=== PATIENT | male | born 1965 | race African-American/Black ===

== ENCOUNTER → 2023-03-15 | Outpatient (CLI) | payer OTHER, SELFPAY ==
[2023-03-15 10:40] LABS: Absolute Lymphocyte Count 2.52 X10^3/uL (0.83-4.51); Absolute Neutrophil Count 3.1 X10^3/uL (2.0-7.7); Basophil# 0.03 X10^3/uL; Basophil% 0.5 % (0-1); Eosinophil# 0.13 X10^3/uL; Hematocrit 45.9 % (40-54); Hemoglobin 14.7 g/dL (13.0-16.5); Lymphocyte # 2.52 X10^3/ul (0.83-4.51); Mean Corpuscular Hgb 30.6 pg (27.0-32.0); Mean Corpuscular Volume 95.4 fL (80-94); Mean Platelet Vol. 9.7 fl (6.2-12.0); Monocyte% 12.1 % (0-10); NRBC Flagged by Analyzer 0 % (0-5); Neutrophil # 3.13 X10^3/uL (2.7-7.7); Neutrophil % 47.1 % (47-70); Platelet Count 264 K/mm3 (150-450); RBC Distribution Width CV 13.8 % (11.6-14.6); RBC Distribution Width SD 48.9 fl (35.1-43.9); Red Blood Count 4.81 M/mm3 (4.6-6.2); White Blood Count 6.6 K/mm3 (4.4-11.0)
[2023-03-15 11:20] LABS: ALB/GLOB Ratio 0.8 RATIO (0.9-2.4); AST(SGOT) 19 U/L (15-37); Alanine Aminotransfer ALT/SGPT 21 U/L (16-61); Albumin, Serum 3.6 g/dL (3.2-5.0); Alkaline Phosphatase 134 U/L (45-117); Anion Gap 7 (5-15); BUN 15 mg/dL (7-18); BUN/Creat Ratio 11.7 RATIO (10-20); Calcium,Total 9.4 mg/dL (8.5-10.1); Chloride 109 mmol/L (98-107); Cholesterol 201 mg/dL (200); Creatinine, Serum 1.28 mg/dL (0.70-1.30); EST Glomerular Filtration Rate 62 mL/min (>60); Est Glom Filt Rate - Afr Amer 75 mL/min (>60); Globulin 4.3 g/dL (2.2-4.2); Glucose 96 mg/dL (74-106); High Density Lipoprotein 50 mg/dL; Potassium 3.9 mmol/L (3.5-5.1); Protein, Total 7.9 g/dL (6.4-8.2); Sodium Level 143 mmol/L (136-145); Triglycerides 159 mg/dL; Very Low Density Lipoprotein 32 mg/dL (5-40)
[2023-03-15 12:02] LABS: Syphilis Antibodies Non-reactive
[2023-03-16 10:07] LABS: Absolute CD4 Helper 925 /uL (359-1519); Basophils (Absolute) 0 x10E3/uL (0.0-0.2); Eosinophils 2 % (Not Estab.); Eosinophils (Absolute) 0.1 x10E3/uL (0.0-0.4); Hematocrit 44.9 % (37.5-51.0); Hemoglobin 15.2 g/dL (13.0-17.7); Immature Granulocytes 0 % (Not Estab.); Immature Granulocytes Absolute 0 x10E3/uL (0.0-0.1); Lymphs 38 % (Not Estab.); Lymphs (Absolute) 2.5 x10E3/uL (0.7-3.1); MCHC 33.9 g/dL (31.5-35.7); MCV 92 fL (79-97); Monocytes 11 % (Not Estab.); Monocytes (Absolute) 0.7 x10E3/uL (0.1-0.9); Neutrophils 49 % (Not Estab.); Neutrophils (Absolute) 3.1 x10E3/uL (1.4-7.0); Platelets 262 x10E3/uL (150-450); RDW 14.3 % (11.6-15.4); WBC Count 6.5 x10E3/uL (3.4-10.8)
[2023-03-18 09:07] LABS: HIV-1 RNA by PCR, Quant. 40 copies/mL (.); LOG10 HIV-1 RNA 1.602 (.)
== END | disposition home or self-care (01) ==
LOC: LAB 09:42
PROVIDERS: Visit Provider Internal Medicine Infectious Disease
DX: B20 Human immunodeficiency virus [HIV] disease (principal)
CPT/HCPCS: 36415; 80053; 80061; 85025; 86361; 86780; 87536

== ENCOUNTER → 2023-07-02 | Outpatient (CLI) | payer OTHER, SELFPAY ==
[2023-07-02 11:12] LABS: ALB/GLOB Ratio 0.8 RATIO (0.9-2.4); AST(SGOT) 16 U/L (15-37); Alanine Aminotransfer ALT/SGPT 23 U/L (16-61); Albumin, Serum 3.4 g/dL (3.2-5.0); Alkaline Phosphatase 129 U/L (45-117); Anion Gap 2 (5-15); BUN 17 mg/dL (7-18); BUN/Creat Ratio 15.6 RATIO (10-20); Calcium,Total 8.6 mg/dL (8.5-10.1); Chloride 110 mmol/L (98-107); Cholesterol 201 mg/dL (200); Creatinine, Serum 1.09 mg/dL (0.70-1.30); EST Glomerular Filtration Rate 75 mL/min (>60); Est Glom Filt Rate - Afr Amer 90 mL/min (>60); Glucose 96 mg/dL (74-106); High Density Lipoprotein 48 mg/dL; Potassium 3.8 mmol/L (3.5-5.1); Protein, Total 7.4 g/dL (6.4-8.2); Sodium Level 139 mmol/L (136-145); Triglycerides 134 mg/dL; Very Low Density Lipoprotein 27 mg/dL (5-40)
[2023-07-04 06:09] LABS: HIV-1 RNA by PCR, Quant. < 20 copies/mL (.)
== END | disposition home or self-care (01) ==
PROVIDERS: Referring Provider Internal Medicine Infectious Disease; Visit Provider Internal Medicine Infectious Disease
DX: B20 Human immunodeficiency virus [HIV] disease (principal); E78.5 Hyperlipidemia, unspecified
CPT/HCPCS: 36415; 80053; 80061; 87536

== ENCOUNTER 2024-02-22 19:56 | Emergency (ER) | payer OTHER, SELFPAY ==
[2024-02-22 19:57] VITALS: BP 137/86; PULSE 73; RESP 15; TEMP 36.2; O2SAT 97; BMI 41.1
--- NOTE | 2024-02-22 21:09 | EDS_ITS ---
HPI History of Present Illness Chief Complaint: Rash Informant: patient Onset/Context/Timing Onset: Weeks Context: Gradual Onset Timing: Continuous Quality: Pruritic Location: Bilateral lower legs Worsened by: Working Relieved by: Hydrocortisone cream Narrative Narrative: Patient presents with a rash over his lower legs that have been getting worse over the past few weeks. Patient denies any new soaps or laundry detergents. Patient denies any other exposures. Patient states it is worse when he has to work and he starts to sweat. Patient states he has been using hydrocortisone cream with minimal relief. Patient denies any fevers or chills. Patient admits to some pruritus and pins and needle sensations in his lower legs. Patient denies any weakness. Patient denies any discharge or drainage [facility] Medical History (Updated 02/22/24 @ 21:[address] Joseph Sesay DO) HIV (human immunodeficiency virus infection) Home Medications ?Medication ?Instructions ?Recorded ?Last Taken ?Type triamcinolone acetonide 0.1 % 1 applic topical DAILY #30 grams 02/22/24 Unknown Rx topical cream Allergy/AdvReac Type Severity Reaction Status Date / Time aspirin Allergy Mild DOESN'T Verified 02/22/24 19:59 DIGEST IN HIS CHEST Surgical History no surgical history no surgical history Social History Smoking Status: Current some day smoker tobacco type: cigars ROS ROS ED Constitutional Constitutional ED: Denies chills or fever(s) Eyes Eyes: Denies blurry vision or change in vision ENT ENT ED: Denies rhinorrhea or sore throat Cardiovascular Cardiovascular: Denies chest pain or palpitations Respiratory/Chest Respiratory/Chest: Denies cough or dyspnea Gastrointestinal Gastrointestinal: Denies nausea or vomiting Genitourinary Genitourinary ED: Denies dysuria or hematuria Musculoskeletal Musculoskeletal: Denies back pain or neck pain Integumentary Reports rash; Denies abscess Neurologic Neurologic: Denies headache(s) or weakness Allergic/Immunologic Allergic/Immunologic ED: Denies mouth swelling or urticaria EXAM Physical Exam Const Vital Signs: 02/22/24 19:57 Temperature 97.2 F L Temperature Source Temporal Pulse Rate 73 Respiratory Rate 15 Blood Pressure 137/86 H Blood Pressure Mean 103 Pulse Ox 97 Oxygen Delivery Method Room Air Positive well nourished and well developed General Appearance ED: well developed HEENT Reports normocephalic atraumatic Extremity full ROM, no calf tenderness and no pedal edema Neuro oriented x3, CN's II-XII intact bilaterally, moves all extremities, no focal motor deficits and no sensory deficits noted Sharon Coma Scale: document GCS findings Spontaneous Obeys Commands Oriented 15 Sensorium / Orientation: awake and alert Speech: speech normal Motor Exam: strength 5/5 throughout Psych mental status grossly normal, cooperative and speech normal Skin Skin Narrative: There is a dry rash over the lower legs bilaterally. There is no erythema or warmth noted. There is no discharge or drainage. There are no vesicles or pustules. There is no involvement of the mucous membranes. There is no sloughing of the skin. General Skin Exam: dry skin MDM MDM MDM Narrative Medical decision making narrative: Patient was advised that this is consistent with eczema. Patient was given a prescription for triamcinolone cream. Patient was instructed to follow-up with his primary care physician in 5 to 7 days. Patient was instructed to return if worse in any way. Patient understood and was agreeable with the plan. All questions were answered. Discharge Plan Triage Chief Complaint: Rash ED Provider: Joseph Sesay Dx/Rx/DC Orders Clinical Impression: Eczema, HIV (human immunodeficiency virus infection) Instructions: ED Atopic Dermatitis (Adult) Prescriptions: New triamcinolone acetonide 0.1 % cream 1 applic topical DAILY Qty: 30 0RF Primary Care Provider: Care Physician,No Primary Referrals: Joseph Garcia MD [Med Staff - Processing Mgr] - 5-7 Days Care Physician,No Primary [Primary Care Provider] - Print Language: Italian Disposition Disposition: Home, Self Care
[2024-02-22 21:27] VITALS: BP 135/76; PULSE 75; RESP 19; TEMP 36.6; O2SAT 95
== END 2024-02-22 21:28 | disposition home or self-care (01) ==
PROVIDERS: Emergency Provider Emergency Medicine; Visit Provider Emergency Medicine
DX: L30.9 Dermatitis, unspecified (principal); Z21 Asymptomatic human immunodeficiency virus [HIV] infection status; F17.290 Nicotine dependence, other tobacco product, uncomplicated
CPT/HCPCS: 99282

== ENCOUNTER → 2024-03-02 | Outpatient (CLI) | payer OTHER, SELFPAY ==
[2024-03-02 17:04] LABS: Absolute Lymphocyte Count 2.99 X10^3/uL (0.83-4.51); Basophil# 0.03 X10^3/uL; Basophil% 0.4 % (0-1); Eosinophil# 0.06 X10^3/uL; Eosinophils% 0.8 % (0-5); Hemoglobin 14.7 g/dL (13.0-16.5); Lymphocyte # 2.99 X10^3/ul (0.83-4.51); Lymphocyte % 37.7 % (19-41); Mean Corpuscular Hgb 29.8 pg (27.0-32.0); Mean Corpuscular Volume 93.1 fL (80-94); Mean Platelet Vol. 9.5 fl (6.2-12.0); Monocyte# 0.81 X10^3/uL; Monocyte% 10.2 % (0-10); NRBC Flagged by Analyzer 0 % (0-5); Neutrophil # 4.02 X10^3/uL (2.7-7.7); Neutrophil % 50.6 % (47-70); Platelet Count 282 K/mm3 (150-450); RBC Distribution Width CV 13.7 % (11.6-14.6); RBC Distribution Width SD 46.4 fl (35.1-43.9); Red Blood Count 4.94 M/mm3 (4.6-6.2); White Blood Count 7.9 K/mm3 (4.4-11.0)
[2024-03-02 17:35] LABS: ALB/GLOB Ratio 0.8 RATIO (0.9-2.4); AST(SGOT) 22 U/L (15-37); Alanine Aminotransfer ALT/SGPT 24 U/L (16-61); Albumin, Serum 3.8 g/dL (3.2-5.0); Alkaline Phosphatase 138 U/L (45-117); Anion Gap 6 (5-15); BUN 13 mg/dL (7-18); BUN/Creat Ratio 9.9 RATIO (10-20); Calcium,Total 9.3 mg/dL (8.5-10.1); Chloride 105 mmol/L (98-107); Creatinine, Serum 1.31 mg/dL (0.70-1.30); EST Glomerular Filtration Rate 60 mL/min (>60); Est Glom Filt Rate - Afr Amer 73 mL/min (>60); Globulin 4.5 g/dL (2.2-4.2); Glucose 94 mg/dL (74-106); Potassium 3.9 mmol/L (3.5-5.1); Protein, Total 8.3 g/dL (6.4-8.2); Sodium Level 136 mmol/L (136-145)
[2024-03-05 06:11] LABS: HIV-1 RNA by PCR, Quant. < 20 copies/mL (.)
== END | disposition home or self-care (01) ==
PROVIDERS: PCP Internal Medicine Infectious Disease; Referring Provider Internal Medicine Infectious Disease; Visit Provider Internal Medicine Infectious Disease
DX: B20 Human immunodeficiency virus [HIV] disease (principal)
CPT/HCPCS: 36415; 80053; 85025; 87536

== ENCOUNTER 2024-07-24 11:16 | Day surgery (SDC) | payer OTHER, SELFPAY ==
--- NOTE | 2024-07-24 11:34 | PCM.PRE.AN2 ---
ASA Classification* ASA Classification ASA Classification: 3 Assessment & Plan Anesthesia* Anesthesia Assessment Anesthesia Assessment: Discussed sedation and/or anesthesia options, risks, benefits, and alternatives with patient/parents/legal guardian/POA. Questions invited. The patient/parents/legal guardian/POA seems to understand and agrees to proceed with anesthesia plan. Reviewed the physical assessment, medical history, allergy history and patient home medications list prior to surgery/procedure/anesthetic and documented any changes. Performed airway and anesthesia risk assessments. Anesthesia Type Anesthesia Type: MAC (HIV positive) Anesthesia Focused Assessment* Airway Assessment Mouth opens: >3 cm Mallampati Score: II Focused Labs Anesthesia Preop lab: CBC WBC 7.9 K/mm3 (4.4-11.0) 03/02/24 16:22 RBC 4.94 M/mm3 (4.6-6.2) 03/02/24 16:22 Hgb 14.7 g/dL (13.0-16.5) 03/02/24 16:22 Hct 46.0 % (40-54) 03/02/24 16:22 Plt Count 282 K/mm3 (150-450) 03/02/24 16:22 CHEMISTRY Potassium 3.9 mmol/L (3.5-5.1) 03/02/24 16:22 Sodium 136 mmol/L (136-145) 03/02/24 16:22 BUN 13 mg/dL (7-18) 03/02/24 16:22 Creatinine 1.31 mg/dL (0.70-1.30) H 03/02/24 16:22 Glucose 94 mg/dL (74-106) 03/02/24 16:22 COAG Pre-Assessment Diagnosis/Proposed Procedure Planned Operative Procedure(s): COLONOSCOPY Anesthesia History Anesthesia History - infectious disease physician: Anesthesia History - infectious disease physician Hx Hospitalization No 07/23/24 09:15 Any Problems With Anesthesia No 07/23/24 09:15 Cholinesterase deficiency No 07/23/24 09:15 You/Your Family Experience No 07/23/24 09:15 fever (hyperthermia) with Relationship Recent Exposure to Contagious Disease Does patient have nerve No 07/23/24 09:15 stimulator Patient instructed to have device shut off --Does patient have Pacemaker or ICD? When Was Last Pacemaker Check QUESTION #4 FULL TEXT: You/Your Family Experience fever (hyperthermia) with Anesthesia Last Oral Intake Last Oral intake: Last Oral Intake NPO since Meds taken in AM with sips of water? Meds patient instructed to take am of surgery PONV PONV - infectious disease physician: PONV - infectious disease physician Female No 07/23/24 09:15 HX of Motion Sickness No 07/23/24 09:15 HX of N/V After Surgery No 07/23/24 09:15 Non-Smoker No 07/23/24 09:15 Duration of Surgery greater No 07/23/24 09:15 than 60 minutes Number of Risk Factors PONV Score Height & Weight Height & Weight: Anesthesia: Height & Weight Height 5 ft 11 in 06/15/24 08:44 Respiratory Assessment Respiratory Assessment - infectious disease physician: Respiratory Tract Infection Hx - infectious disease physician Hx Respiratory Tract Infection No 07/23/24 09:15 STOP Sleep Apnea STOP Sleep Apnea - infectious disease physician: STOP Sleep Apnea - infectious disease physician Hx Hypertension Yes: CONTROLLED WITH MEDS 07/23/24 09:15 Hx Sleep Apnea No 07/23/24 09:15 CPAP BIPAP Do you snore loudly (louder No 07/23/24 09:15 than talking or can be heard Do you often feel tired/ No 07/23/24 09:15 fatigued/ sleepy during daytime? Has anyone observed you stop No 07/23/24 09:15 breathing during sleep? STOP Results Negative 07/23/24 09:15 QUESTION #5 FULL TEXT : Do you snore loudly (louder than talking or can be heard through closed doors)? Tobacco Use History Tobacco Use History - infectious disease physician: Tobacco Use History - infectious disease physician Tobacco Use Smoking Status Current some day smoker 07/23/24 09:15 Hx Tobacco Use Yes 07/23/24 09:15 Years Smoking Packs Smoked per Day Smoking Cessation Date was within the last 15 years Hx Smoking Cessation Date Hx Smoking Cessation Counseling Hematologic Medial History Hematologic Hx - infectious disease physician: Hematologic Medical Hx - planning consultant Hx of Blood Transfusion No 07/23/24 09:15 Hx of Transfusion in last 3 No 07/23/24 09:15 Months Date of Last Transfusion (if within last 3 months) Ever experience any problems No 07/23/24 09:15 with transfusion(s)? Specify any problems Hx of Preganancy in last 3 N/A 07/23/24 09:15 Months Nurse Filling Out Transfusion [id number] 07/23/24 09:15 & Questions: Date: 07/23/24 07/23/24 09:15 Time: 09:16 07/23/24 09:15 Patient unable to answer at this time (ie. confused, unrespo /Reproduction History /Reproductive History - infectious disease physician: /Reproductive Hx- infectious disease physician Hx Now Gestational Age (in weeks): EDC: Hx Hx Para Hx Section SAB PFSH Medical History Wears dentures Smoker History of edema High blood pressure HIV (human immunodeficiency virus infection) Home Medications ?Medication ?Instructions ?Recorded ?Last Taken ?Type cetirizine 10 mg capsule (Zyrtec) 10 mg PO DAILY PRN allergy symptoms 04/09/24 Unknown History elviteg 150 mg-cob 150 mg-emtricit 1 tab PO QHS 04/09/24 Unknown History 200 mg-tenofo alafenam 10 mg tablet (Genvoya) triamcinolone acetonide 0.1 % 1 applic topical DAILY #80 grams 04/09/24 Unknown Rx topical cream amlodipine 5 mg tablet 5 mg PO DAILY 07/23/24 Unknown History Allergy/AdvReac Type Severity Reaction Status Date / Time aspirin Allergy Mild DOESN'T Verified 07/23/24 09:12 DIGEST IN HIS CHEST Family History Mother Diabetes Heart disease Kidney disease Father Diabetes Hypertension Surgical History No pertinent past surgical history Social History adopted: No household members: spouse current occupational status: employed 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
[2024-07-24 11:36] VITALS: BP 131/86; PULSE 65; RESP 16; TEMP 36.5; O2SAT 95; BMI 42.5
--- NOTE | 2024-07-24 11:40 | PCM.HP.STD ---
HPI - General General Date of Admission: 07/24/24 Date of Service: 07/24/24 Chief Complaint: Screening colonoscopy HPI Narrative DRE JALLOH, is a 58 M who presents today for early colonoscopy. He has a medical history of HIV virus is on medical therapy with Genvoya. Only other past medical history has is hypertension and he takes amlodipine 5 mg daily. She has not had a colonoscopy in the past. [facility], [facility] Medical History Wears dentures Smoker History of edema High blood pressure HIV (human immunodeficiency virus infection) Home Medications ?Medication ?Instructions ?Recorded ?Last Taken ?Type cetirizine 10 mg capsule (Zyrtec) 10 mg PO DAILY PRN allergy symptoms 04/09/24 Unknown History elviteg 150 mg-cob 150 mg-emtricit 1 tab PO QHS 04/09/24 Unknown History 200 mg-tenofo alafenam 10 mg tablet (Genvoya) triamcinolone acetonide 0.1 % 1 applic topical DAILY #80 grams 04/09/24 Unknown Rx topical cream amlodipine 5 mg tablet 5 mg PO DAILY 07/23/24 Unknown History Allergy/AdvReac Type Severity Reaction Status Date / Time aspirin Allergy Mild DOESN'T Verified 07/24/24 11:35 DIGEST IN HIS CHEST Family History Mother Diabetes Heart disease Kidney disease Father Diabetes Hypertension Surgical History No pertinent past surgical history Social History adopted: No household members: spouse current occupational status: employed 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 current occupational exposures/hazards: No Smoking Status: Current some day smoker tobacco type: cigars Electronic Cigarette Use: not used alcohol intake: current alcohol intake frequency: holidays/special occasions only details: 1 beer per month substance use type: former substance user Date of last use: 2005 - cocaine seatbelt use: always do you feel safe at home: Yes ROS Review of Systems ROS Unobtainable: other Constitutional Constitutional: Denies fatigue, fever(s), poor appetite, weight gain or weight loss ENT HEENT: Denies mouth lesions Cardiovascular Cardiovascular: Denies abdominal bloating, abdominal edema or abdominal pain Respiratory/Chest Respiratory/Chest: Denies change in mental status, change in phlegm color, chest congestion or chest tightness Gastrointestinal Gastrointestinal: Denies belching, bloating, change in bowel habits, change in stool character, chewing difficulty, coffee ground emesis, constipation, cramping, diarrhea, dyspepsia, dysphagia, early satiety, excessive flatus, fecal incontinence, heartburn, hematemesis, hematochezia, hemorrhoids, loose stools, melena, nausea, odynophagia, rectal bleeding, tenesmus, vomiting or weight changes Genitourinary Genitourinary: Denies abdominal discomfort, burning urination or itching Musculoskeletal Musculoskeletal: Reports as per HPI; Denies muscle weakness or myalgias Integumentary Integumentary: Denies jaundice Neurologic Neurologic: Denies lack of coordination or weakness Psychiatric Psychiatric: Denies confusion, depression, memory loss, mood swings, paranoia or suicidal ideation Endocrine Endocrinology: Denies systems reviewed and no addt'l complaints, except as documented Hematologic/Lymphatic Hematologic/Lymphatic: Denies anemia, easy bleeding, easy bruising or lymphadenopathy Allergic/Immunologic Allergic/Immunologic: Denies systems reviewed and no addt'l complaints, except as documented Vital Signs Vital Signs Vital Signs: 07/24/24 11:36 07/24/24 11:36 Temperature 97.7 F L Temperature Source Temporal Pulse Rate 65 Respiratory Rate 16 Respiratory Pattern Normal Blood Pressure 131/86 H Blood Pressure Mean 101 Blood Pressure Source Monitor Blood Pressure Position Semi-Fowlers Blood Pressure Location Right Arm Pulse Ox 95 Oxygen Delivery Method Room Air Weight Weight: 305 lb 1.916 oz Body Mass Index (BMI) 42.5 Physical Exam Const alert General Appearance: cooperative Orientation / Consciousness: oriented to person HEENT hearing grossly normal bilaterally Head and Scalp: normal to inspection Face and Sinus: face symmetric Nose: external nose normal Mouth: oral and palatal mucosa normal Eyes conjunctivae normal General Eye: normal appearance of both eyes Neck full ROM General: normal visual inspection Lymph Lymphatic: no lymphadenopathy noted Chest inspection of chest normal and palpation of chest normal Chest: symmetrical chest wall rise Resp normal respiratory effort Effort and Inspection: able to speak in complete sentences Cardio regular rate GI non-distended Percussion: normal to percussion Rectal Exam: deferred Neuro Speech: speech normal Gait (Neuro): normal gait Assessment & Plan Assessment/Plan (1) Encounter for screening for malignant neoplasm of colon: PLAN: He was explained alternatives, risk, benefits including outstanding bleeding, infection, sepsis, perforation, need for monitoring. We will add an ASA of 30.
[2024-07-24 13:02] VITALS: BP 101/63; BP 131/86; PULSE 85; RESP 16; TEMP 36.2; O2SAT 92
--- NOTE | 2024-07-24 13:03 | OP.CCLET_ITS ---
07/24/2024 Angelita Vega Md Re : Colonoscopy procedure for Alfonso Ojeda Dear Gary This procedure was performed on Wednesday, July 24, 2024. My impressions and recommendations are as follows: Impressions : - Diverticulosis in the recto-sigmoid colon and in the sigmoid colon. - The examination was otherwise normal on direct and retroflexion views. - No specimens collected. Recommendations : - Discharge patient to home. - Resume previous diet. - Continue present medications. - Repeat colonoscopy in 10 years for screening purposes. My findings are described in the full procedure note, which is enclosed. If I can be of further assistance, please feel free to contact me at . Sincerely, Rios Holt, 07/24/2024 1:02:56 PM This report has been signed electronically.
--- NOTE | 2024-07-24 13:03 | OP.COLON_ITS ---
Patient Name: Alfonso Ojeda Procedure Date: 07/24/2024 12:30 PM Date of : 1965 Age: 58 Procedure: Colonoscopy Indications: Screening for colorectal malignant neoplasm Providers: Rios Holt DO Referring MD: Angelita Vega Md Medicines: Monitored Anesthesia Care Patient Profile: This is a 58 year old male. Refer to note in patient chart for documentation of history and physical. Last Colonoscopy: none. The patient's first colonoscopy is today. Complications: No immediate complications. Procedure: Pre-Anesthesia Assessment: - Prior to the procedure, a History and Physical was performed, and patient medications and allergies were reviewed. The patient is competent. The risks and benefits of the procedure and the sedation options and risks were discussed with the patient. All questions were answered and informed consent was obtained. Patient identification and proposed procedure were verified by the physician in the pre-procedure area. Mental Status Examination: alert and oriented. Airway Examination: normal oropharyngeal airway and neck mobility. Respiratory Examination: clear to auscultation. CV Examination: normal. Prophylactic Antibiotics: The patient does not require prophylactic antibiotics. Prior Anticoagulants: The patient has taken no anticoagulant or antiplatelet agents except for NSAID medication. ASA Grade Assessment: II - A patient with mild systemic disease. After reviewing the risks and benefits, the patient was deemed in satisfactory condition to undergo the procedure. The anesthesia plan was to use monitored anesthesia care (MAC). Immediately prior to administration of medications, the patient was re-assessed for adequacy to receive sedatives. The heart rate, respiratory rate, oxygen saturations, blood pressure, adequacy of pulmonary ventilation, and response to care were monitored throughout the procedure. The physical status of the patient was re-assessed after the procedure. After I obtained informed consent, the scope was passed under direct vision. Throughout the procedure, the patient's blood pressure, pulse, and oxygen saturations were monitored continuously. The Colonoscope was introduced through the anus and advanced to the cecum, identified by appendiceal orifice and ileocecal valve. The colonoscopy was performed without difficulty. The patient tolerated the procedure well. The quality of the bowel preparation was adequate. The ileocecal valve, appendiceal orifice, and rectum were photographed. Scope In: 12:39:39 PM Scope Withdrawal Time 0 hours 12 minutes 30 seconds Scope Out: 12:58:38 PM Total Procedure Duration Time 0 hours 18 minutes 59 seconds Findings: The perianal and digital rectal examinations were normal. A few small-mouthed diverticula were found in the recto-sigmoid colon and sigmoid colon. The exam was otherwise without abnormality on direct and retroflexion views. Impression: - Diverticulosis in the recto-sigmoid colon and in the sigmoid colon. - The examination was otherwise normal on direct and retroflexion views. - No specimens collected. Recommendation: - Discharge patient to home. - Resume previous diet. - Continue present medications. - Repeat colonoscopy in 10 years for screening purposes. Procedure Code(s): --- Professional --- G0121, Colorectal cancer screening; colonoscopy on individual not meeting criteria for high risk CPT copyright 2021 [employer]. All rights reserved. The codes documented in this report are preliminary and upon account executive trainee review may be revised to meet current compliance requirements. Rios Holt DO 07/24/2024 1:02:56 PM This report has been signed electronically. Number of Addenda: 0 Note Initiated On: 07/24/2024 12:30 PM
[2024-07-24 13:05] VITALS: BP 131/86; BP 89/62; PULSE 86; RESP 16; O2SAT 92
--- NOTE | 2024-07-24 13:09 | PCM.POST.ANE ---
Anesthesia: Postop Eval I Current Vital Signs Temperature: 97.7 F Pulse Rate: 85 Blood Pressure: 101/63 Respiratory Rate: 18 Pulse Ox: 92 Oxygen Delivery Method: Room Air Assessment Airway patent: Yes Spontaneous unlabored respirations: Yes Mental status: Asleep nausea: No Vomiting: No Anesthesia Complication: No Fluid Hydration Crystalloid volume administer (ml): 60 Total IV fluid infused: 60 Progress Note Anesthesia document: Postop Eval 1 completed: Yes
[2024-07-24 13:10] VITALS: BP 101/63; BP 131/86; BP 95/65; PULSE 85; RESP 16; RESP 18; TEMP 36.5; O2SAT 90; O2SAT 92
[2024-07-24 13:15] VITALS: BP 100/73; BP 131/86; PULSE 80; RESP 16; O2SAT 92
[2024-07-24 13:25] VITALS: BP 112/53; BP 131/86; PULSE 74; RESP 16; TEMP 36.2; O2SAT 93
--- NOTE | 2024-07-24 15:51 | PCM.POSTANE2 ---
Anesthesia Postop Eval I Sum Postop Eval Completion status Anesthesia document: Postop Eval 1 completed: Yes Anesthesia Postop Eval I Summary Anesthesia Postop Eval I Summary: Anesthesia Postop Eval I: Assessment Summary Airway patent Yes 07/24/24 13:10 [email or web address] Spontaneous unlabored Yes 07/24/24 13:10 [email or web address] respirations Mental status Asleep 07/24/24 13:10 [email or web address] nausea No 07/24/24 13:10 [email or web address] Vomiting No 07/24/24 13:10 [email or web address] Anesthesia Postop Eval I: Fluid Summary Crystalloid volume administer 60 07/24/24 13:10 [email or web address] (ml) Colloids volume administered ( ml) Blood Product volume administered (ml) Total IV fluid infused 60 07/24/24 13:10 [email or web address] Anesthesia Postop Eval I: Summary Notes Anesthesia Complication No 07/24/24 13:10 [email or web address] Anesthesia Complication Comment: Post-operative progress note Anesthesia: Postop Eval II Evaluation Mental status: Awake and Calm Pain Level: 0 nausea: No Vomiting: No Complications Anesthesia Complication: No
== END 2024-07-24 14:00 | disposition home or self-care (01) ==
LOC: EN 11:16 → AC 11:20
PROVIDERS: PCP Internal Medicine; Referring Provider Internal Medicine; Visit Provider Internal Medicine Gastroenterology
PROC: 0DJD8ZZ Inspection of Lower Intestinal Tract, Via Natural or Artificial Opening Endoscopic (ICD-10-PCS; CPT 45378; principal; 2024-07-24 12:25)
DX: Z12.11 Encounter for screening for malignant neoplasm of colon (principal); Z21 Asymptomatic human immunodeficiency virus [HIV] infection status; K57.30 Diverticulosis of large intestine without perforation or abscess without bleeding; I10 Essential (primary) hypertension; Z79.899 Other long term (current) drug therapy; F17.290 Nicotine dependence, other tobacco product, uncomplicated
CPT/HCPCS: 45378; A4216; J2405

== ENCOUNTER → 2024-08-21 | Outpatient (CLI) | payer OTHER, SELFPAY ==
[2024-08-21 15:15] LABS: Absolute Lymphocyte Count 2.87 X10^3/uL (0.83-4.51); Absolute Neutrophil Count 4.9 X10^3/uL (2.0-7.7); Basophil# 0.02 X10^3/uL; Basophil% 0.2 % (0-1); Eosinophil# 0.08 X10^3/uL; Eosinophils% 0.9 % (0-5); Hemoglobin 14.5 g/dL (13.0-16.5); Lymphocyte # 2.87 X10^3/ul (0.83-4.51); Lymphocyte % 32.8 % (19-41); Mean Corpuscular Hgb 30.9 pg (27.0-32.0); Mean Corpuscular Volume 93.6 fL (80-94); Mean Platelet Vol. 9.5 fl (6.2-12.0); Monocyte# 0.85 X10^3/uL; Monocyte% 9.7 % (0-10); NRBC Flagged by Analyzer 0 % (0-5); Neutrophil # 4.89 X10^3/uL (2.7-7.7); Neutrophil % 56.1 % (47-70); Platelet Count 281 K/mm3 (150-450); RBC Distribution Width CV 13.8 % (11.6-14.6); RBC Distribution Width SD 47.4 fl (35.1-43.9); White Blood Count 8.7 K/mm3 (4.4-11.0)
[2024-08-21 16:32] LABS: ALB/GLOB Ratio 0.9 RATIO (0.9-2.4); AST(SGOT) 17 U/L (15-37); Alanine Aminotransfer ALT/SGPT 26 U/L (16-61); Albumin, Serum 3.7 g/dL (3.2-5.0); Alkaline Phosphatase 124 U/L (45-117); Anion Gap 7 (5-15); BUN 14 mg/dL (7-18); BUN/Creat Ratio 12.6 RATIO (10-20); Calcium,Total 9.3 mg/dL (8.5-10.1); Chloride 107 mmol/L (98-107); Cholesterol 237 mg/dL (200); Creatinine, Serum 1.11 mg/dL (0.70-1.30); EST Glomerular Filtration Rate 73 mL/min (>60); Est Glom Filt Rate - Afr Amer 88 mL/min (>60); Globulin 4.1 g/dL (2.2-4.2); Glucose 89 mg/dL (74-106); High Density Lipoprotein 44 mg/dL; Potassium 3.9 mmol/L (3.5-5.1); Protein, Total 7.8 g/dL (6.4-8.2); Sodium Level 139 mmol/L (136-145); Triglycerides 113 mg/dL; Very Low Density Lipoprotein 23 mg/dL (5-40)
[2024-08-24 17:07] LABS: Absolute CD4 Helper 1080 /uL (359-1519); Basophils (Absolute) 0 x10E3/uL (0.0-0.2); CD4/CD8 Ratio 0.87 (0.92-3.72); Eosinophils 1 % (Not Estab.); Eosinophils (Absolute) 0.1 x10E3/uL (0.0-0.4); Hematocrit 44.5 % (37.5-51.0); Hemoglobin 14.7 g/dL (13.0-17.7); Immature Granulocytes 0 % (Not Estab.); Immature Granulocytes Absolute 0 x10E3/uL (0.0-0.1); Lymphs 34 % (Not Estab.); MCH 30.9 pg (26.6-33.0); MCV 94 fL (79-97); Monocytes 8 % (Not Estab.); Monocytes (Absolute) 0.7 x10E3/uL (0.1-0.9); Neutrophils 57 % (Not Estab.); Neutrophils (Absolute) 4.9 x10E3/uL (1.4-7.0); Percent % CD8 Pos. Lymph. 41.2 % (12.0-35.5); Platelets 274 x10E3/uL (150-450); RBC Count 4.76 x10E6/uL (4.14-5.80); RDW 13.6 % (11.6-15.4); WBC Count 8.7 x10E3/uL (3.4-10.8)
[2024-08-25 02:08] LABS: HIV-1 RNA by PCR, Quant. < 20 copies/mL (.)
== END | disposition home or self-care (01) ==
LOC: LAB 14:25
PROVIDERS: PCP Internal Medicine; Referring Provider Internal Medicine Infectious Disease; Visit Provider Internal Medicine Infectious Disease
DX: B20 Human immunodeficiency virus [HIV] disease (principal); E78.5 Hyperlipidemia, unspecified
CPT/HCPCS: 36415; 80053; 80061; 85025; 86360; 87536

== ENCOUNTER → 2025-01-13 | Outpatient (CLI) | payer OTHER, SELFPAY ==
[2025-01-13 17:27] LABS: PSA,Total- Diagnostic 0.96 ng/mL (0.00-4.00)
== END | disposition home or self-care (01) ==
LOC: BIMLAB 15:49
PROVIDERS: PCP Internal Medicine; Referring Provider Internal Medicine; Visit Provider Internal Medicine
DX: E66.01 Morbid (severe) obesity due to excess calories (principal); Z68.41 Body mass index [BMI] 40.0-44.9, adult; R35.1 Nocturia
CPT/HCPCS: 36415; 84153; 84443

== ENCOUNTER → 2025-04-16 | Outpatient (CLI) | payer OTHER, SELFPAY ==
[2025-04-16 15:38] LABS: Hematocrit 41.0 % (40-54); Hemoglobin 13.5 g/dL (13.0-16.5); Immature Granulocytes Count 0.030 X10^3/uL (0.0-0.0); Mean Corp Hgb Conc 32.9 g/dL (32-36); Mean Corpuscular Volume 92.6 fL (80-94); Mean Platelet Vol. 9.7 fl (6.2-12.0); NRBC Flagged by Analyzer 0 % (0-5); Platelet Count 260 K/mm3 (150-450); RBC Distribution Width CV 14.1 % (11.6-14.6); RBC Distribution Width SD 47.6 fl (35.1-43.9); Red Blood Count 4.43 M/mm3 (4.6-6.2); White Blood Count 7.5 K/mm3 (4.4-11.0)
[2025-04-16 16:33] LABS: AST(SGOT) 19 U/L (<=37); Alanine Aminotransfer ALT/SGPT 16 U/L (<=46); Albumin, Serum 4.1 g/dL (3.5-5.0); Alkaline Phosphatase 133 U/L (40-129); Anion Gap 12 (5-15); BUN 12 mg/dL (4-19); BUN/Creat Ratio 11.0 RATIO (10-20); Calcium,Total 9.2 mg/dL (7.6-11.0); Carbon Dioxide 22.3 mmol/L (21.0-32.0); Chloride 105 mmol/L (98-108); Cholesterol 149 mg/dL (<=200); Globulin 3.4 g/dL (2.2-4.2); Glucose 92 mg/dL (70-99); Low Density Lipoprotein Calc. 82 mg/dL; Potassium 3.8 mmol/L (3.3-5.1); Triglycerides 106 mg/dL; Very Low Density Lipoprotein 21 mg/dL (5-40); cholesterol:hdl ratio screen 3.25
[2025-04-19 15:08] LABS: Hematocrit 42.8 % (37.5-51.0); Hemoglobin 13.8 g/dL (13.0-17.7); MCH 30.9 pg (26.6-33.0); MCHC 32.2 g/dL (31.5-35.7); MCV 96 fL (79-97); Percent % CD4 Pos. Lymph. 37.7 % (30.8-58.5); RDW 14.0 % (11.6-15.4)
[2025-04-19 18:08] LABS: HIV-1 RNA by PCR, Quant. < 20 copies/mL (.)
== END | disposition home or self-care (01) ==
LOC: LAB 14:14
PROVIDERS: PCP Internal Medicine; Referring Provider Internal Medicine Infectious Disease; Visit Provider Internal Medicine Infectious Disease
DX: B20 Human immunodeficiency virus [HIV] disease (principal); E78.5 Hyperlipidemia, unspecified
CPT/HCPCS: 36415; 80053; 80061; 85025; 86361; 87536